=== PATIENT | male | born 1965 | race Caucasian/White ===

== ENCOUNTER 2016-07-23 19:20 | Emergency (ER) | payer OTHER ==
[~2016-07-23] VITALS: Ht 167.6 cm; Wt 63.6 kg
[~2016-07-23 19:20] MED LIST: ALPR1 PO; AMLO10 PO; METO25 PO; SIMV20 PO; WELL200T PO
[2016-07-23 19:32] VITALS: BP 145/74; PULSE 92; RESP 18; TEMP 98.3; O2SAT 97
--- NOTE | 2016-07-23 19:41 | PD ---
HPI Chief Complaint: depression Time Seen by Provider: 19:33 Travel History International Travel<30 days: No Contact w/Intl Traveler<30days: No Traveled to known affect area: No History of Present Illness HPI This is a 51-year-old male who reports a history of depression and COPD. He presents under [place] act initiated by the police department. The patient reports that he works 18 hours a day, works several jobs, and because he was tired he fell asleep in his truck today. He reports that his next-door neighbor startled him and woke him up and he became very angry at Neighbor. The neighbor then called the police who placed him under [place] act for making suicidal statements. According to his paperwork he threatened to kill himself with a gun and made multiple suicidal statements in their presence. Initially the patient denies making any suicidal statements but during examination he admits that he feels no point in living especially when he is working 18-20 hrs. a day. He reports in the past his primary care physician Dr. Anderson was prescribing him Seroquel however he can no longer afford it and so he no longer takes it. He admits to drinking whiskey today. He admits to occasional marijuana use. Denies any other illicit drug use. Denies any access to firearms. He has no other complaints. [facility] Past Medical History Depression: Yes COPD: Yes Hypertension: Yes Inguinal Hernia: Yes (LAST REPAIRED 2004) Family History Family Hypercholesterolemia: Yes Social History Alcohol Use: Yes (SOCIALLY) Tobacco Use: Yes (2 PPD) Substance Use: No (DENIES) Allergies-Medications (Allergen,Severity, Reaction): Coded Allergies: No Known Allergies (Unverified , 07/23/16) Reported Meds & Prescriptions Reported Meds & Active Scripts Active No Active Prescriptions or Reported Medications Review of Systems Except as stated in HPI: all other systems reviewed are Neg Physical Exam Narrative GENERAL: Well-developed well-nourished male in no acute distress SKIN: Warm and dry. HEAD: Atraumatic. Normocephalic. EYES: Pupils equal and round. No scleral icterus. No injection or drainage. ENT: No nasal bleeding or discharge. Mucous membranes pink and moist. NECK: Trachea midline. No JVD. CARDIOVASCULAR: Regular rate and rhythm. No murmur appreciated. RESPIRATORY: No accessory muscle use. Mild wheezing. GASTROINTESTINAL: Abdomen soft, non-tender, nondistended. Hepatic and splenic margins not palpable. MUSCULOSKELETAL: No obvious deformities. No edema. NEUROLOGICAL: Awake and alert. No obvious cranial nerve deficits. Motor grossly within normal limits. Normal speech. PSYCHIATRIC: Depressed, tearful, agitated during examination. Data Data Last Documented VS Vital Signs Date Time Temp Pulse Resp B/P Pulse Ox O2 Delivery O2 Flow Rate FiO2 07/23/16 19:32 98.3 92 18 145/74 97 Orders Complete Blood Count With Diff (07/23/16 19:35) Comprehensive Metabolic Panel (07/23/16 19:35) Psych Screen (07/23/16 19:35) Drug Screen, Random Urine (07/23/16 19:35) Alcohol (Ethanol) (07/23/16 19:35) ^ Sitter (07/23/16 19:35) Labs Laboratory Tests Test 07/23/16 19:46 White Blood Count 6.2 TH/MM3 Red Blood Count 5.09 MIL/MM3 Hemoglobin 15.6 GM/DL Hematocrit 44.7 % Mean Corpuscular Volume 87.8 FL Mean Corpuscular Hemoglobin 30.7 PG Mean Corpuscular Hemoglobin 35.0 % Concent Red Cell Distribution Width 14.1 % Platelet Count 314 TH/MM3 Mean Platelet Volume 6.5 FL Neutrophils (%) (Auto) 35.0 % Lymphocytes (%) (Auto) 58.3 % Monocytes (%) (Auto) 3.9 % Eosinophils (%) (Auto) 1.9 % Basophils (%) (Auto) 0.9 % Neutrophils # (Auto) 2.2 TH/MM3 Lymphocytes # (Auto) 3.6 TH/MM3 Monocytes # (Auto) 0.2 TH/MM3 Eosinophils # (Auto) 0.1 TH/MM3 Basophils # (Auto) 0.1 TH/MM3 CBC Comment AUTO DIFF Differential Comment AUTO DIFF CONFIRMED Platelet Estimate NORMAL Platelet Morphology Comment NORMAL Red Cell Morphology Comment NORMAL Sodium Level 143 MEQ/L Potassium Level 3.5 MEQ/L Chloride Level 111 MEQ/L Carbon Dioxide Level 21.4 MEQ/L Anion Gap 11 MEQ/L Blood Urea Nitrogen 11 MG/DL Creatinine 0.99 MG/DL Estimat Glomerular Filtration 79 ML/MIN Rate Random Glucose 110 MG/DL Calcium Level 8.2 MG/DL Total Bilirubin 0.2 MG/DL Aspartate Amino Transf 17 U/L (AST/SGOT) Alanine Aminotransferase 16 U/L (ALT/SGPT) Alkaline Phosphatase 71 U/L Total Protein 7.2 GM/DL Albumin 3.8 GM/DL Urine Opiates Screen NEG Urine Barbiturates Screen NEG Urine Amphetamines Screen NEG Urine Benzodiazepines Screen NEG Urine Cocaine Screen NEG Urine Cannabinoids Screen POS Ethyl Alcohol Level 210 MG/DL MDM Medical Decision Making Medical Screen Exam Complete: Yes Emergency Medical Condition: Yes Medical Record Reviewed: Yes Interpretation(s) Positive for cannabinoids, alcohol level 210 other lab work unremarkable Differential Diagnosis Depression, depressive disorder not otherwise specified, substance induced mood disorder, adjustment reaction Narrative Course 51-year-old male presents under [employer] act for making suicidal statements. On examination is clearly depressed, tearful, agitated. A sitter has been ordered. Mental health screening discussed with the patient. Psychiatric screen ordered. Lab work has been reviewed. The patient is medically cleared for psychiatric disposition. He was moved to [facility]. Scripts No Active Prescriptions or Reported Meds Lencho Dove Jul 23, 2016 19:40
[2016-07-23 20:09] LABS: AUTOMATED NEUTROPHIL # 2.2 TH/MM3 (1.8-7.7); BASOPHIL # 0.1 TH/MM3 (0-0.2); BASOPHIL % 0.9 % (0.0-2.0); EOSINOPHIL # 0.1 TH/MM3 (0-0.4); EOSINOPHIL % 1.9 % (0.0-4.0); HEMATOCRIT 44.7 % (39.0-51.0); LYMPH % 58.3 % (9.0-44.0); LYMPHOCYTE # 3.6 TH/MM3 (1.0-4.8); MEAN CELL VOLUME 87.8 FL (80.0-100.0); MEAN CORPUSCULAR HEMOGLOBIN 30.7 PG (27.0-34.0); MONO % 3.9 % (0.0-8.0); PLATELET COUNT 314 TH/MM3 (150-450); RED BLOOD COUNT 5.09 MIL/MM3 (4.50-5.90); RED CELL DISTRIBUTION WIDTH 14.1 % (11.6-17.2); WHITE BLOOD COUNT 6.2 TH/MM3 (4.0-11.0)
[2016-07-23 20:11] LABS: AMPHETAMINE, URINE NEG (NEG); BARBITURATES, URINE NEG (NEG); COCAINE, URINE NEG (NEG); HEMO FLAGS AUTO DIFF
[2016-07-23 20:31] LABS: ALKALINE PHOSPHATASE 71 U/L (45-117); ALT (GPT) 16 U/L (12-78); ANION GAP 11 MEQ/L (5-15); AST (GOT) 17 U/L (15-37); BICARBONATE 21.4 MEQ/L (21.0-32.0); BLOOD UREA NITROGEN 11 MG/DL (7-18); CHLORIDE 111 MEQ/L (98-107); GLOMERULAR FILTRATION RATE 79 ML/MIN (>89); SODIUM (NA) 143 MEQ/L (136-145); TOTAL BILIRUBIN ADULT 0.2 MG/DL (0.2-1.0)
[2016-07-23 20:32] LABS: POTASSIUM 3.5 MEQ/L (3.5-5.1)
[2016-07-23 20:36] LABS: PLATELET ESTIMATE SMEAR NORMAL (NORMAL); PLATELET MORPHOLOGY NORMAL (NORMAL); SCAN/DIFF AUTO DIFF CONFIRMED
[2016-07-23 22:30] VITALS: BP 134/74; PULSE 109; RESP 18; O2SAT 97
== END 2016-07-24 01:53 ==
LOC: NEPB 19:20 → NEPJ 07-24 01:53
DX: F32.9 Major depressive disorder, single episode, unspecified (principal)
CPT/HCPCS: 80053; 80307; 85025; 99284